=== PATIENT | female | born 1960 | race Caucasian/White ===

== ENCOUNTER → 2016-04-30 | Outpatient (CLI) | payer OTHER ==
--- NOTE | 2016-04-30 18:29 | DX ---
Right Hand, Three Views History: Pain post trauma. Fall onto hand this morning. Findings: No fracture or dislocation is identified. Mineralization is normal. There is a small osteop hyte involving the proximal dorsal corner of the distal phalanx of fingers 2, 4 and 5. Impression: Nothing acute identified.
--- NOTE | 2016-04-30 18:30 | DX ---
Right Wrist, 4 views including a navicular view History: Pain post trauma. Fall onto hand earlier today. Findings: No fracture or dislocation is identified. Specifically the distal dorsal radius looks norm al. Impression: Nothing acute identified.
== END ==
LOC: BMCIMAGING 18:05
PROVIDERS: ATTEND Family Medicine
DX: M25.531 Pain in right wrist (principal); M79.641 Pain in right hand

== ENCOUNTER → 2016-09-24 | Outpatient (CLI) | payer OTHER | LOC: EDSTATUS 11:20 → FLAB 14:33 → FIMAGING 14:33 | PROVIDERS: ATTEND Family Medicine | DX: R14.0 Abdominal distension (gaseous) (principal); R10.84 Generalized abdominal pain ==

== ENCOUNTER → 2016-10-02 | Outpatient (CLI) | payer OTHER | LOC: FIMAGING 08:34 | PROVIDERS: ATTEND Family Medicine | DX: Z12.31 Encounter for screening mammogram for malignant neoplasm of breast (principal) | CPT/HCPCS: G0202 ==